=== PATIENT | male | born 1930 | race Caucasian/White ===

== ENCOUNTER 2016-04-24 12:36 | Emergency (ER) | payer MEDICARE, OTHER ==
[~2016-04-24] VITALS: Ht 182.9 cm; Wt 63.0 kg
[~2016-04-24 12:36] MED LIST: HOSP BED1; OMEGCAP PO; TAMS5CAP PO; WHEEMIS3; [UNRECOGNIZED DRUG - OTHER]
[2016-04-24 12:40] VITALS: BP 105/55; PULSE 59; RESP 16; TEMP 97; O2SAT 99
[2016-04-24] MEDS ORDERED: SODIUM CHLOR 0.9% 1000 ML INJ 1,000 ML IV ONE (12:48)
[2016-04-24] MEDS ORDERED: SODIUM CHLORIDE 0.9% FLUSH 5 ML FLUSH IVF PRN (13:00)
[2016-04-24 13:11] VITALS: RESP 16; O2SAT 99
[2016-04-24] MEDS ORDERED: FLEEENE3 PR (13:38)
[2016-04-24] MEDS ORDERED: PLAV75TA29 G-TUBE (13:38)
[2016-04-24] MEDS ORDERED: MILKSUS G-TUBE (13:38)
[2016-04-24] MEDS ORDERED: ZOFR4SOL PO (13:38)
[2016-04-24] MEDS ORDERED: ASPI325T G-TUBE (13:38)
[2016-04-24] MEDS ORDERED: ACEP325S PR (13:38)
[2016-04-24] MEDS ORDERED: MELA3TAB PEG (13:38)
[2016-04-24] MEDS ORDERED: FAMO40SU G-TUBE (13:38)
[2016-04-24] MEDS ORDERED: CULT10CA4 G-TUBE (13:38)
[2016-04-24] MEDS ORDERED: DIAZ5 G-TUBE (13:38)
[2016-04-24] MEDS ORDERED: TYLE325T G-TUBE ×2 (13:38)
[2016-04-24] MEDS ORDERED: POTA10LI10 G-TUBE (13:38)
[2016-04-24] MEDS ORDERED: DULC10SU3 PR (13:38)
[2016-04-24] MEDS ORDERED: HYOS0.128 G-TUBE (13:38)
[2016-04-24] MEDS ORDERED: METO25TA3 G-TUBE (13:38)
[2016-04-24] MEDS ORDERED: AMIO200T G-TUBE (13:38)
[2016-04-24] MEDS ORDERED: MAGN400T2 G-TUBE (13:38)
[2016-04-24] MEDS ORDERED: POLY99.0 EACH EYE (13:38)
[2016-04-24] MEDS ORDERED: IPRASOL NEB (13:38)
[2016-04-24] MEDS ORDERED: DIGO50SO G-TUBE (13:38)
[2016-04-24] MEDS ORDERED: SCOP1PAT2 T-DERMAL (13:38)
[2016-04-24 13:43] LABS: AUTOMATED NEUTROPHIL # 3.1 TH/MM3 (1.8-7.7); BASOPHIL # 0.1 TH/MM3 (0-0.2); BASOPHIL % 1.1 % (0.0-2.0); EOSINOPHIL # 0.6 TH/MM3 (0-0.4); EOSINOPHIL % 8.2 % (0.0-4.0); HEMATOCRIT 38.4 % (39.0-51.0); HEMO FLAGS DIFF FINAL; LYMPH % 32.3 % (9.0-44.0); LYMPHOCYTE # 2.2 TH/MM3 (1.0-4.8); MEAN CELL VOLUME 93.3 FL (80.0-100.0); MEAN CORPUSCULAR HEMOGLOBIN 31.3 PG (27.0-34.0); MEAN CORPUSCULAR HGB CONC 33.5 % (32.0-36.0); MONO % 13.6 % (0.0-8.0); NEUT % 44.8 % (16.0-70.0); PLATELET COUNT 214 TH/MM3 (150-450); RED BLOOD COUNT 4.12 MIL/MM3 (4.50-5.90); WHITE BLOOD COUNT 6.9 TH/MM3 (4.0-11.0)
--- NOTE | 2016-04-24 13:48 | PD ---
HPI Chief Complaint: Syncope/Near-Syncope Time Seen by Provider: 12:39 Travel History International Travel<30 days: No Contact w/Intl Traveler<30days: No Traveled to known affect area: No History of Present Illness HPI The patient is a 85-year-old male who presents emergency department from a rehabilitation facility for possible syncope. According to EMS the patient had just finished physical therapy, was standing upright suddenly, when the patient went "white", and passed out. However, staff at the correction/ rehabilitation facility was able to see what was occurring and the patient did not fall to the ground. The patient's , states the patient is at baseline, which includes severe dementia. The patient will occasionally respond his name , follow simple commands such as grabbing hands, but is a poor historian. The patient is unable to answer review of systems. PFSH Past Medical History Atrial Fibrillation: Yes Dementia: Yes Diminished Hearing: No Genitourinary: Yes (prostate bladder stones) Headaches: Yes Medical other: Yes (PULMONARY EDEMA) Musculoskeletal: Yes Neurologic: Yes (dementia) Reproductive: No Respiratory: No Immunizations Current: Yes Tetanus Vaccination: < 5 Years Past Surgical History Cholecystectomy: Yes Eye Surgery: Yes (catarcat) Other Surgery: Yes (bladder stones) Social History Alcohol Use: Yes Tobacco Use: No Substance Use: No Allergies-Medications (Allergen,Severity, Reaction): Coded Allergies: No Known Allergies (Verified , 04/24/16) Reported Meds & Prescriptions Reported Meds & Active Scripts Active Reported Dulcolax Supp (Bisacodyl) 10 Mg Supp 10 Mg IN DAILY PRN Milk of Magnesia Liq (Magnesium Hydroxide) 400 Mg/5 Ml Susp 30 Ml G-TUBE DIRECTED PRN Fleet Enema Rectal (Sodium Phosphates Rectal) 7-19 Gm/118 Ml Enem 1 Applic IN ON 4TH DAY PRN Amiodarone (Amiodarone HCl) 200 Mg Tab 200 Mg G-TUBE DAILY Artificial Tears Opth Drops (Polyvinyl Alcohol) 1.4% Soln 1 Drop EACH EYE BID Aspirin 325 Mg Tab 325 Mg G-TUBE DAILY Culturelle (Lactobacillus Rhamnosus (GG)) 10 B Cell Cap 1 Cap G-TUBE DAILY Plavix (Clopidogrel Bisulfate) 75 Mg Tab 75 Mg G-TUBE DAILY Famotidine Liq (Famotidine) 40 Mg/5 Ml Susp 20 Mg G-TUBE BID Magnesium Oxide 400 Mg Tab 400 Mg G-TUBE BID Metoprolol Tartrate 25 Mg Tab 25 Mg G-TUBE Q12HR Hold for SBP <100 Scopolamine Patch 72 HR (Scopolamine) 1 Mg Patch 1 Patch T-DERMAL Q3D Acephen Supp (Acetaminophen) 325 Mg Supp 325 Mg IN Q4H PRN Tylenol (Acetaminophen) 325 Mg Tab 650 Mg G-TUBE Q4H PRN Duoneb (Ipratropium-Albuterol Neb) 0.5-2.5 Mg/3 Ml Neb 3 Ml NEB Q6HR PRN Zofran Liq (Ondansetron HCl) 4 Mg/5 Ml Soln 4 Mg PO Q6H PRN Potassium Chloride Liq (Potassium Chloride) 40 Meq/15 Ml Soln 20 Meq G-TUBE DAILY Digoxin Liq (Digoxin) 0.05 Mg/Ml Soln 0.25 Mg G-TUBE DAILY Melatonin 3 Mg Tab 3 Mg PEG BID PRN Valium (Diazepam) 5 Mg Tab 5 Mg G-TUBE DAILY Tylenol (Acetaminophen) 325 Mg Tab 325 Mg G-TUBE BID Hyoscyamine (Hyoscyamine Sulfate) 0.125 Mg Tab 0.125 Mg G-TUBE Q8HR PRN Review of Systems ROS Limitations: Clinical Condition, Poor Historian Except as stated in HPI: all other systems reviewed are Neg Physical Exam Narrative GENERAL: Awake, 85-year-old male who will occasionally respond to his name and follow simple commands such as squeezing hands, but does not answer questions. SKIN: Warm and dry. HEAD: Atraumatic. Normocephalic. EYES: Pupils are 2 mm bilateral. ENT: No nasal bleeding or discharge. Slightly dry mucous membranes. NECK: Trachea midline. No JVD. CARDIOVASCULAR: Regular rate and rhythm. No murmur appreciated. RESPIRATORY: No accessory muscle use. Clear to auscultation. Breath sounds equal bilaterally. GASTROINTESTINAL: Abdomen soft, non-tender, nondistended. No rebound tenderness. MUSCULOSKELETAL: No obvious deformities. No clubbing. No cyanosis. No edema. NEUROLOGICAL: Awake and alert. No obvious cranial nerve deficits. Motor grossly within normal limits. Grunts when his name is called. Withdraws all 4 extremities to pain. We'll squeeze hands bilaterally. PSYCHIATRIC: Appears demented. Data Data Last Documented VS Vital Signs Date Time Temp Pulse Resp B/P Pulse Ox O2 Delivery O2 Flow Rate FiO2 2/3/17 13:11 16 99 Room Air 04/24/16 12:40 97.0 59 105/55 Orders Electrocardiogram (04/24/16 12:48) Complete Blood Count With Diff (04/24/16 12:48) Comprehensive Metabolic Panel (04/24/16 12:48) Magnesium (Mg) (04/24/16 12:48) Ckmb (Isoenzyme) Profile (04/24/16 12:48) Troponin I (04/24/16 12:48) Urinalysis - C+S If Indicated (04/24/16 12:48) Chest, Single Ap (04/24/16 12:48) Ct Brain W/O Iv Contrast(Rout) (04/24/16 12:48) Ecg Monitoring (04/24/16 12:48) Iv Access Insert/Monitor (04/24/16 12:48) Oximetry (04/24/16 12:48) Sodium Chloride 0.9% Flush (Ns Flush) (04/24/16 13:00) Sodium Chlor 0.9% 1000 Ml Inj (Ns 1000 M (04/24/16 12:48) Digoxin (04/24/16 12:48) Labs Laboratory Tests Test 04/24/16 13:15 White Blood Count 6.9 TH/MM3 Red Blood Count 4.12 MIL/MM3 Hemoglobin 12.9 GM/DL Hematocrit 38.4 % Mean Corpuscular Volume 93.3 FL Mean Corpuscular Hemoglobin 31.3 PG Mean Corpuscular Hemoglobin 33.5 % Concent Red Cell Distribution Width 15.0 % Platelet Count 214 TH/MM3 Mean Platelet Volume 8.6 FL Neutrophils (%) (Auto) 44.8 % Lymphocytes (%) (Auto) 32.3 % Monocytes (%) (Auto) 13.6 % Eosinophils (%) (Auto) 8.2 % Basophils (%) (Auto) 1.1 % Neutrophils # (Auto) 3.1 TH/MM3 Lymphocytes # (Auto) 2.2 TH/MM3 Monocytes # (Auto) 0.9 TH/MM3 Eosinophils # (Auto) 0.6 TH/MM3 Basophils # (Auto) 0.1 TH/MM3 CBC Comment DIFF FINAL Differential Comment Sodium Level 139 MEQ/L Potassium Level 4.9 MEQ/L Chloride Level 105 MEQ/L Carbon Dioxide Level 29.6 MEQ/L Anion Gap 4 MEQ/L Blood Urea Nitrogen 26 MG/DL Creatinine 0.94 MG/DL Estimat Glomerular Filtration 76 ML/MIN Rate Random Glucose 107 MG/DL Calcium Level 8.5 MG/DL Magnesium Level 2.0 MG/DL Total Bilirubin 0.4 MG/DL Aspartate Amino Transf 47 U/L (AST/SGOT) Alanine Aminotransferase 68 U/L (ALT/SGPT) Alkaline Phosphatase 104 U/L Total Creatine Kinase 47 U/L Troponin I LESS THAN 0.02 NG/ML Total Protein 6.3 GM/DL Albumin 2.7 GM/DL Digoxin Level 0.2 NG/ML MDM Medical Decision Making Medical Screen Exam Complete: Yes Emergency Medical Condition: Yes Medical Record Reviewed: Yes Interpretation(s) EKG reveals sinus rhythm with a rate of 64. Left bundle branch block. No stiff skin changes when compared to EKG performed on January 27, 2016. Last Impressions Head CT 04/24/16 1248 Signed Impressions: Service Date/Time: Sunday, April 24, 2016 14:09 - CONCLUSION: Negative for an acute process Ventricles remain prominent Del Goss MD FACR Laboratory Tests Test 04/24/16 13:15 White Blood Count 6.9 TH/MM3 Red Blood Count 4.12 MIL/MM3 Hemoglobin 12.9 GM/DL Hematocrit 38.4 % Mean Corpuscular Volume 93.3 FL Mean Corpuscular Hemoglobin 31.3 PG Mean Corpuscular Hemoglobin 33.5 % Concent Red Cell Distribution Width 15.0 % Platelet Count 214 TH/MM3 Mean Platelet Volume 8.6 FL Neutrophils (%) (Auto) 44.8 % Lymphocytes (%) (Auto) 32.3 % Monocytes (%) (Auto) 13.6 % Eosinophils (%) (Auto) 8.2 % Basophils (%) (Auto) 1.1 % Neutrophils # (Auto) 3.1 TH/MM3 Lymphocytes # (Auto) 2.2 TH/MM3 Monocytes # (Auto) 0.9 TH/MM3 Eosinophils # (Auto) 0.6 TH/MM3 Basophils # (Auto) 0.1 TH/MM3 CBC Comment DIFF FINAL Differential Comment Sodium Level 139 MEQ/L Potassium Level 4.9 MEQ/L Chloride Level 105 MEQ/L Carbon Dioxide Level 29.6 MEQ/L Anion Gap 4 MEQ/L Blood Urea Nitrogen 26 MG/DL Creatinine 0.94 MG/DL Estimat Glomerular Filtration 76 ML/MIN Rate Random Glucose 107 MG/DL Calcium Level 8.5 MG/DL Magnesium Level 2.0 MG/DL Total Bilirubin 0.4 MG/DL Aspartate Amino Transf 47 U/L (AST/SGOT) Alanine Aminotransferase 68 U/L (ALT/SGPT) Alkaline Phosphatase 104 U/L Total Creatine Kinase 47 U/L Troponin I LESS THAN 0.02 NG/ML Total Protein 6.3 GM/DL Albumin 2.7 GM/DL Digoxin Level 0.2 NG/ML Chest x-ray reveals compensated cardiomegaly, otherwise unremarkable. Differential Diagnosis Differential diagnosis includes orthostatic hypotension, arrhythmia, electrolyte abnormality, seizure, intracranial hemorrhage, vasovagal syncope, near syncope. Narrative Course IV was established, labs are drawn and sent, and the patient was placed on cardiac telemetry monitoring and continuous pulse oximetry monitoring. EKG was ordered and interpreted. Orthostatic vital signs were obtained. CT of the brain was obtained. EMR was reviewed, the patient had a hospitalization with extensive workup including brain MRI and carotids as well as echocardiogram at the end of 2015, January, when he was admitted for new onset atrial fibrillation with syncope. Therefore, do not believe patient needs repeat carotid ultrasound or echocardiogram. Workup is unremarkable, presyncope may be secondary to activity earlier today and vagal mediated versus dehydration. The patient will be discharged back to [facility] facility. Diagnosis Primary Impression: Pre-syncope Additional Impression: Dementia Patient Instructions: General Instructions Additional Instructions: Follow-up with your primary physician. Return if symptoms worsen or progress. Disposition: 01 DISCHARGE HOME (discharged back to [facility] facility) Condition: Stable Camron Lopez MD Apr 24, 2016 13:48
[2016-04-24 14:15] LABS: ALKALINE PHOSPHATASE 104 U/L (45-117); ALT (GPT) 68 U/L (12-78); ANION GAP 4 MEQ/L (5-15); BICARBONATE 29.6 MEQ/L (21.0-32.0); BLOOD UREA NITROGEN 26 MG/DL (7-18); CHLORIDE 105 MEQ/L (98-107); DIGOXIN 0.2 NG/ML (0.8-2.0); GLOMERULAR FILTRATION RATE 76 ML/MIN (>89); SODIUM (NA) 139 MEQ/L (136-145); TOTAL BILIRUBIN ADULT 0.4 MG/DL (0.2-1.0)
--- NOTE | 2016-04-24 14:15 | RADRPT ---
EXAM DATE/TIME: 04/24/2016 12:58 [facility] COMPARISON: CHEST SINGLE AP, February 11, 2016, 14:14. INDICATIONS : Short of breath MEDICAL HISTORY : CVA SURGICAL HISTORY : Unobtainable ENCOUNTER: Initial ACUITY: 1 day PAIN SCORE: Non-responsive. LOCATION: Bilateral chest FINDINGS: The heart is minimally enlarged. The pulmonary vascularity is normal. There is no evidence of conso lidation, pleural effusion or pneumothorax. Moderate calcification is present in the thoracic aorta. CONCLUSION: Moderate compensated cardiomegaly. Otherwise, negative. Del Goss MD FACR on April 24, 2016 at 13:10 Board Certified Radiologist. This report was verified electronically.
[2016-04-24 14:17] LABS: AST (GOT) 47 U/L (15-37); CREATINE KINASE 47 U/L (39-308); POTASSIUM 4.9 MEQ/L (3.5-5.1)
--- NOTE | 2016-04-24 14:23 | RADRPT ---
EXAM DATE/TIME: 04/24/2016 14:09 There is marked central and cortical atrophy with dilatation of ventricular and sulcal spaces. There is no parenchymal hemorrhage, acute infarction or mass lesion identified. There are no extra-axial fluid collections appreciated. The posterior fossa is unremarkable with midline fourth ventricle. T he portion of the orbits and paranasal sinuses visualized are unremarkable. CONCLUSION: Negative for an acute process Ventricles remain prominent Del Goss MD FACR on April 24, 2016 at 14:21 Board Certified Radiologist. This report was verified electronically.
[2016-04-24 17:39] VITALS: BP 130/84; TEMP 97.8
--- NOTE | 2016-04-26 13:19 | EKG ---
Date Performed: 04/24/2016 Time Performed: 12:43:49 PTAGE: 85 years EKG: Sinus rhythm WITH FIRST DEGREE AV BLOCK MARKED LEFT AXIS DEVIATION LEFT BUNDLE BRANCH BLOCK When compared to prev ious tracing, heart rate has slowed, Previously present atrial fibrillation is no longer present. The re is a new left bundle branch block. ABNORMAL ECG PREVIOUS TRACING : 02/03/2016 09.46 DOCTOR: Mary Lou Morgan Interpretating Date/Time 04/26/2016 13:19:34
== END 2016-04-24 17:41 | disposition home or self-care (01) ==
LOC: NEPE 12:36 → NEPA 17:41
DX: R55 Syncope and collapse (principal); F03.90 Unspecified dementia, unspecified severity, without behavioral disturbance, psychotic disturbance, mood disturbance, and anxiety; I44.0 Atrioventricular block, first degree; I44.7 Left bundle-branch block, unspecified; I48.91 Unspecified atrial fibrillation
CPT/HCPCS: 70450; 71010; 80053; 80162; 82550; 83735; 84484; 85025; 93005; 96360; 96361; 99285; J7030

== ENCOUNTER → 2016-05-18 | Outpatient (CLI) | payer MEDICARE, OTHER ==
[~2016-05-18] MED LIST changes: +ACEP325S PR; +AMIO200T G-TUBE; +ASPI-110 G-TUBE; +ASPI325T G-TUBE; +CULT10CA4 G-TUBE; +DIAZ5 G-TUBE; +DIGO50SO G-TUBE; +DULC10SU3 PR; +FAMO40SU G-TUBE; +FLEEENE3 PR; -HOSP BED1; +HYOS0.128 G-TUBE; +IPRASOL NEB; +MAGN400T2 G-TUBE; +MELA3TAB PEG; +METO25TA3 G-TUBE; +MILKSUS G-TUBE; -OMEGCAP PO; +PLAV75TA29 G-TUBE; +POLY99.0 EACH EYE; +POTA10LI10 G-TUBE; +PREV30TA3 G-TUBE; +SCOP1PAT2 T-DERMAL; -TAMS5CAP PO; +TYLE325T G-TUBE; -WHEEMIS3; +ZOFR4SOL PO; -[UNRECOGNIZED DRUG - OTHER]
--- NOTE | 2016-05-18 11:46 | RADRPT ---
EXAM DATE/TIME: 05/18/2016 10:28 [facility] COMPARISON: No previous studies available for comparison. INDICATIONS: Dysphagia. FLUORO TIME: 1.4 minutes IMAGE COUNT: 2 CONTRAST: Dose as prescribed by speech pathologist. MEDICAL HISTORY: Irregular heartbeat SURGICAL HISTORY: Tracheostomy, peg tube Dec/2015 ENCOUNTER: Initial ACUITY: 4 - 6 months PAIN SCORE: Non-responsive. LOCATION: Bilateral neck FINDINGS/ CONCLUSION: Patient has Parkinson's disease. Patient has a very delayer trigger of swallowing without saadia aspiration. Most significant finding is the inability to initiate swallowing. Please see the consultation from speech pathology. Del Goss MD FACR on May 18, 2016 at 11:30 Board Certified Radiologist. This report was verified electronically.
== END ==
LOC: HRAD 09:52
PROVIDERS: ATTEND Family Medicine
DX: R13.10 Dysphagia, unspecified (principal)
CPT/HCPCS: 74230; 92611; G8996; G8997; G8998

== ENCOUNTER 2016-09-17 01:33 | Observation (INO) | payer MEDICARE, OTHER ==
[~2016-09-17] VITALS: Ht 182.9 cm; Wt 63.0 kg
[2016-09-17] VITALS (9 sets, daily range): BP systolic 96–140; BP diastolic 54–64; PULSE 64–85; RESP 14–20; TEMP 97.4–98.4; O2SAT 90–98
[~2016-09-17 01:33] MED LIST changes: -ASPI-110 G-TUBE; -PREV30TA3 G-TUBE
[2016-09-17] MEDS ORDERED: SODIUM CHLORIDE 0.9% FLUSH 10 ML FLUSH IVF PRN (01:45)
--- NOTE | 2016-09-17 01:45 | PD ---
HPI Chief Complaint: DARK TARRY STOOLS Time Seen by Provider: 01:37 Travel History International Travel<30 days: No Contact w/Intl Traveler<30days: No History of Present Illness HPI TODAY PER FAMILY HAS HAD AT LEAST 3 BM WHICH WERE BETWEEN BRIGHT RED TO COFFEE GROUND, PT HAS ADVANCE DEMENTIA AND DYSPHAGIA (HAS G TUBE IN PLACE) AND IS ONLY A/OX1 AT BEST PER FAMILY. PT HAS NO CURRENT COMPLAINT PFSH Past Medical History Atrial Fibrillation: Yes Dementia: Yes Diminished Hearing: No Genitourinary: Yes (prostate bladder stones) Headaches: Yes Musculoskeletal: Yes Neurologic: Yes (dementia) Reproductive: No Respiratory: No Immunizations Current: Yes Past Surgical History Cholecystectomy: Yes Eye Surgery: Yes (catarcat) Other Surgery: Yes (bladder stones) Social History Alcohol Use: Yes Tobacco Use: No Substance Use: No Allergies-Medications (Allergen,Severity, Reaction): Coded Allergies: No Known Allergies (Verified , 09/17/16) Reported Meds & Prescriptions Reported Meds & Active Scripts Active Reported Amiodarone (Amiodarone HCl) 200 Mg Tab 200 Mg G-TUBE DAILY Artificial Tears Opth Drops (Polyvinyl Alcohol) 1.4% Soln 1 Drop EACH EYE BID Plavix (Clopidogrel Bisulfate) 75 Mg Tab 75 Mg G-TUBE DAILY Magnesium Oxide 400 Mg Tab 400 Mg G-TUBE BID Potassium Chloride Liq (Potassium Chloride) 40 Meq/15 Ml Soln 20 Meq G-TUBE DAILY Digoxin Liq (Digoxin) 0.05 Mg/Ml Soln 0.25 Mg G-TUBE DAILY Valium (Diazepam) 5 Mg Tab 5 Mg G-TUBE DAILY Review of Systems ROS Limitations: Poor Historian (DUE TO ADVANCE DEMENTIA, IS A POOR HISTORIAN) , Other: Physical Exam Exam Limitations: Poor Historian Narrative GENERAL: SKIN: Warm and dry. HEAD: Atraumatic. Normocephalic. EYES: Pupils equal and round. No scleral icterus. No injection or drainage. ENT: No nasal bleeding or discharge. Mucous membranes pink and moist. NECK: Trachea midline. No JVD. CARDIOVASCULAR: Regular rate and rhythm. RESPIRATORY: No accessory muscle use. Clear to auscultation. Breath sounds equal bilaterally. GASTROINTESTINAL: Abdomen soft, non-tender, nondistended. RECTAL POSITIVE FOR COFFEE GROUND COLOR STOOL AND GUAIAC POS MUSCULOSKELETAL: Extremities without clubbing, cyanosis, or edema. No obvious deformities. NEUROLOGICAL: Awake and alert. No obvious cranial nerve deficits. Motor grossly within normal limits. Five out of 5 muscle strength in the arms and legs. Normal speech. PSYCHIATRIC: Appropriate mood and affect; insight and judgment normal. Data Data Last Documented VS Orders Complete Blood Count With Diff (09/17/16 01:38) Prothrombin Time / Inr (Pt) (09/17/16 01:38) Act Partial Throm Time (Ptt) (09/17/16 01:38) Type And Screen (09/17/16 01:38) Ecg Monitoring (09/17/16 01:38) Iv Access Insert/Monitor (09/17/16 01:38) Oximetry (09/17/16 01:38) Sodium Chloride 0.9% Flush (Ns Flush) (09/17/16 01:45) Comprehensive Metabolic Panel (09/17/16 01:38) Lipase (09/17/16 01:38) Digoxin (09/17/16 01:50) Admit Order (Ed Use Only) (09/17/16 02:41) Labs Laboratory Tests Test 09/17/16 01:50 White Blood Count 8.4 TH/MM3 Red Blood Count 3.82 MIL/MM3 Hemoglobin 12.1 GM/DL Hematocrit 35.5 % Mean Corpuscular Volume 93.1 FL Mean Corpuscular Hemoglobin 31.6 PG Mean Corpuscular Hemoglobin 34.0 % Concent Red Cell Distribution Width 13.0 % Platelet Count 277 TH/MM3 Mean Platelet Volume 8.3 FL Neutrophils (%) (Auto) 64.2 % Lymphocytes (%) (Auto) 20.0 % Monocytes (%) (Auto) 9.5 % Eosinophils (%) (Auto) 4.3 % Basophils (%) (Auto) 2.0 % Neutrophils # (Auto) 5.4 TH/MM3 Lymphocytes # (Auto) 1.7 TH/MM3 Monocytes # (Auto) 0.8 TH/MM3 Eosinophils # (Auto) 0.4 TH/MM3 Basophils # (Auto) 0.2 TH/MM3 CBC Comment AUTO DIFF Differential Comment AUTO DIFF CONFIRMED Platelet Estimate NORMAL Platelet Morphology Comment NORMAL Sodium Level 135 MEQ/L Potassium Level 5.6 MEQ/L Chloride Level 103 MEQ/L Carbon Dioxide Level 27.3 MEQ/L Anion Gap 5 MEQ/L Blood Urea Nitrogen 24 MG/DL Creatinine 0.82 MG/DL Estimat Glomerular Filtration 89 ML/MIN Rate Random Glucose 85 MG/DL Calcium Level 7.9 MG/DL Total Bilirubin 0.5 MG/DL Aspartate Amino Transf 32 U/L (AST/SGOT) Alanine Aminotransferase 19 U/L (ALT/SGPT) Alkaline Phosphatase 83 U/L Total Protein 5.6 GM/DL Albumin 2.5 GM/DL Lipase 206 U/L Digoxin Level 0.8 NG/ML Blood Type B POSITIVE Antibody Screen NEGATIVE MDM Medical Decision Making Medical Screen Exam Complete: Yes Emergency Medical Condition: Yes Medical Record Reviewed: Yes Differential Diagnosis ANTICOAGULATION INDUCED BLEEDING V GI BLEEDING V FOOD DISLCOLORATION OF STOOL V ANEMIA Narrative Course BASED ON BEDSIDE EXAM DARK TARRY STOOLS POSITVE GUIAIAC WITHOUT ANAL FISSURE OR HEMORHOID. HEMODYNAMICALLY STABLE, H/H STABLE. WILL CALL DR LOVETT (PER SERVICE , [employer] ALL WEEK). CALL OUT TO [facility] Point of Care Internal Pos. & Neg. Controls: Passed Fecal Specimen Occult Blood: Positive Diagnosis Primary Impression: GI BLEED (HEMODYNAMICALLY STABLE) Admitting Information Admitting Physician Requests: Observation Scripts Lansoprazole ODT (Prevacid Solutab ODT)30 Mg Tab30 Mg G-TUBE DAILY #30 TAB Prov:Ru Rand 09/18/[address] (Aspirin 81)81 Mg Tabdr81 Mg G-TUBE DAILY #30 TAB Ref 0 Prov:Ru Rand 09/18/16 Enrique Hassan MD Sep 17, 2016 01:45
[2016-09-17 02:07] LABS: AUTOMATED NEUTROPHIL # 5.4 TH/MM3 (1.8-7.7); BASOPHIL # 0.2 TH/MM3 (0-0.2); EOSINOPHIL # 0.4 TH/MM3 (0-0.4); EOSINOPHIL % 4.3 % (0.0-4.0); HEMATOCRIT 35.5 % (39.0-51.0); LYMPHOCYTE # 1.7 TH/MM3 (1.0-4.8); MEAN CELL VOLUME 93.1 FL (80.0-100.0); MEAN CORPUSCULAR HEMOGLOBIN 31.6 PG (27.0-34.0); MONO % 9.5 % (0.0-8.0); NEUT % 64.2 % (16.0-70.0); PLATELET COUNT 277 TH/MM3 (150-450); RED BLOOD COUNT 3.82 MIL/MM3 (4.50-5.90); WHITE BLOOD COUNT 8.4 TH/MM3 (4.0-11.0)
[2016-09-17 02:24] LABS: HEMO FLAGS AUTO DIFF
[2016-09-17 02:41] LABS: ALKALINE PHOSPHATASE 83 U/L (45-117); DIGOXIN 0.8 NG/ML (0.8-2.0); TOTAL BILIRUBIN ADULT 0.5 MG/DL (0.2-1.0)
[2016-09-17 02:48] LABS: ALT (GPT) 19 U/L (12-78); ANION GAP 5 MEQ/L (5-15); AST (GOT) 32 U/L (15-37); BICARBONATE 27.3 MEQ/L (21.0-32.0); BLOOD UREA NITROGEN 24 MG/DL (7-18); CHLORIDE 103 MEQ/L (98-107); GLOMERULAR FILTRATION RATE 89 ML/MIN (>89); SODIUM (NA) 135 MEQ/L (136-145)
[2016-09-17 02:49] LABS: POTASSIUM 5.6 MEQ/L (3.5-5.1)
[2016-09-17] MEDS ORDERED: NALOXONE HCL 0.4 MG/ML AMP IV PRN (03:15)
[2016-09-17] MEDS ORDERED: SODIUM CHLORIDE 0.9% FLUSH 10 ML FLUSH IV FLUSH PRN (03:15)
[2016-09-17 03:29] LABS: PLATELET ESTIMATE SMEAR NORMAL (NORMAL); PLATELET MORPHOLOGY NORMAL (NORMAL); SCAN/DIFF AUTO DIFF CONFIRMED
[2016-09-17 04:00] LABS: PROTHROMBIN TIME - PATIENT 11.2 SEC (9.8-11.6)
[2016-09-17] MEDS ORDERED: PANTOPRAZOLE INJ 80 MG in SODIUM CHLORIDE 0.9% INJ 35 ML IV ONE (04:15)
[2016-09-17] MEDS ORDERED: PANTOPRAZOLE INJ 80 MG in SODIUM CHLORIDE 0.9% INJ 100 ML IV SCH (04:15)
[2016-09-17 05:29] LABS: HEMATOCRIT 34.9 % (39.0-51.0); REVIEW FLAG FINAL
--- NOTE | 2016-09-17 05:49 | HHI.HP ---
HPI Service [facility] Primary Care Physician Hernan Guardado MD Admission Diagnosis GI BLEED (HEMODYNAMICALLY STABLE) Diagnoses: Travel History International Travel<30 Days: No Contact w/Intl Traveler <30 Da: No Traveled to Known Affected Are: No History of Present Illness hx from and [employer] worker/neighbour at the bedside stated that she brought him to hospital because she noticed he had 3 x episodes of black stool with some bright red blood denies other complaints from patient has advanced dementia but usually would complain if he feels something per no falls no syncope no shortness of breath no nausea or vomiting baseline is that he is mostly wheel chair bound able to sit up able to walk shuffling sideways Review of Systems ROS Limitations: Altered Mental Status (limited ROS from patient as pt has advanced dementia) Past Family Social History Past Medical History afib grade I diastolic heart failure alzeimers dementia hx of ventilator dependence - 01/2016 LBBB BPH Allergic rhinitis Past Surgical History ortho procedures cataract sx bladder stone removal Reported Medications has a list Allergies: Coded Allergies: No Known Allergies (Verified , 09/17/16) Family History pt's mom had chf dad had massive [place] Social History never smoked cigarettes, not a drinker, no drugs advanced dementia, has been at home since apr 2016 with Physical Exam Vital Signs Vital Signs Date Time Temp Pulse Resp B/P Pulse Ox O2 Delivery O2 Flow Rate FiO2 09/17/16 03:00 70 14 111/56 96 Room Air 09/17/16 01:56 18 96 Room Air 09/17/16 01:38 98.4 69 20 118/58 95 Physical Exam GENERAL: This is a well-nourished, well-developed patient, in some distress from confusion, being out of his environment SKIN: dry scaly skin HEAD: Atraumatic. Normocephalic. No temporal or scalp tenderness. EYES: No scleral icterus. No injection or drainage. ENT: Nose without bleeding, purulent drainage or septal hematoma. Airway patent. NECK: Trachea midline. No JVD CARDIOVASCULAR: Regular rate and rhythm without murmurs, gallops, or rubs. RESPIRATORY: Clear to auscultation. Breath sounds equal bilaterally. No wheezes , rales, or rhonchi. GASTROINTESTINAL: Abdomen soft, non-tender, nondistended.. No guarding. peg tube in place MUSCULOSKELETAL: Extremities without clubbing, cyanosis, or edema. . No calf tenderness. NEUROLOGICAL: Awake, confused, moving around, trying to pull peg tube out, verbally communicative though does not make sense and does not really answer appropriately Laboratory Laboratory Tests Test 09/17/16 09/17/16 09/17/16 01:50 03:20 05:16 White Blood Count 8.4 Red Blood Count 3.82 Hemoglobin 12.1 12.0 Hematocrit 35.5 34.9 Mean Corpuscular Volume 93.1 Mean Corpuscular Hemoglobin 31.6 Mean Corpuscular Hemoglobin 34.0 Concent Red Cell Distribution Width 13.0 Platelet Count 277 Mean Platelet Volume 8.3 Neutrophils (%) (Auto) 64.2 Lymphocytes (%) (Auto) 20.0 Monocytes (%) (Auto) 9.5 Eosinophils (%) (Auto) 4.3 Basophils (%) (Auto) 2.0 Neutrophils # (Auto) 5.4 Lymphocytes # (Auto) 1.7 Monocytes # (Auto) 0.8 Eosinophils # (Auto) 0.4 Basophils # (Auto) 0.2 CBC Comment AUTO DIFF Differential Comment AUTO DIFF CONFIRMED Platelet Estimate NORMAL Platelet Morphology Comment NORMAL Sodium Level 135 Potassium Level 5.6 Chloride Level 103 Carbon Dioxide Level 27.3 Anion Gap 5 Blood Urea Nitrogen 24 Creatinine 0.82 Estimat Glomerular Filtration 89 Rate Random Glucose 85 Calcium Level 7.9 Total Bilirubin 0.5 Aspartate Amino Transf 32 (AST/SGOT) Alanine Aminotransferase 19 (ALT/SGPT) Alkaline Phosphatase 83 Total Protein 5.6 Albumin 2.5 Lipase 206 Digoxin Level 0.8 Blood Type B POSITIVE Antibody Screen NEGATIVE Prothrombin Time 11.2 Prothromb Time International 1.0 Ratio Activated Partial 22.0 Thromboplast Time Result Diagram: 09/17/16 0516 09/17/16 0150 Assessment and Plan Assessment and Plan Impression: UGI bleed Advanced dementia with agitation afib grade I diastolic heart failure hx of ventilator dependence - 01/2016 LBBB BPH Allergic rhinitis Plan: serial hgb/hct type and screen tele monitoring GI consult for GI bleed and possible PEG tube malfunction Code Status full code discussed with in detail Discussed Condition With patient, ER MD, patient's and [employer] worker Apolinar Stubbs MD Sep 17, 2016 05:49
[2016-09-17] MEDS ORDERED: LORazepam 2 MG/ML VIAL IV PUSH ONE (06:00)
--- NOTE | 2016-09-17 08:57 | PD.CONS ---
HPI History of Present Illness This is a 86 year old with Alzheimer's dementia that was brought to the emergency room for evaluation of rectal bleeding. The patient is confused and unable to provide any history and therefore the history has been obtained from both the EMR, outpatient records, and from the . The tells me that in January of last year, he had a PEG tube placed because he was "too sedated to eat." He has been at home with her and she reports that she's been trying to get him off the tube feeding. She feeds him a regular diet and he seems to tolerate this well without any coughing, nausea, or vomiting. Occasionally he will be too sleepy to eat and when that happened she will give Iso sure 1.54 cans per day through the PEG tube. She reports that he was in his normal state of health up until yesterday evening when he passed a small bowel movement with a large amount of bright red blood per rectum he did not appear to be in any pain and she reports that normally he will tell her if she is having any discomfort. She denies any nausea, vomiting, hematemesis, constipation, diarrhea, or obvious discomfort. EGD (02/04/16)----> normal EGD, 20 Greek PEG tube placed. He has not had a colonoscopy in many years. He is on Plavix at home. Spoke to the Thalia Vallejo regarding further evaluation with EGD/ colonoscopy. She states that she does not want to purse any endoscopic procedure unless absolutely necessary because of his overall condition and the fact that she does not want for him to have anesthesia. She is hoping to get him back home as soon as possible. Did explain to her that if he is bleeding, he could have further bleeding once the Plavix is resumed and we will not know for sure what is causing his bleeding. She verbalizes understanding but would like to hold off on any invasive procedures. PFSH Past Medical History Atrial fibrillation Congestive heart failure Alzheimer's dementia History of respiratory failure requiring mechanical ventilation BPH Allergic rhinitis Past Surgical History Multiple orthopedic procedures EGD with PEG tube placement Cataract sx Surgery to have bladder stone removed Coded Allergies: No Known Allergies (Verified , 09/17/16) Medications Allergies Coded Allergies Type Severity Reaction Last Updated Verified No Known Allergies 09/17/16 Yes Active Scripts Medications Dose Route/Sig Days Date Category Dose Instructions Amiodarone (Amiodarone HCl) 200 Mg Tab 200 Mg G-TUBE DAILY 04/24/16 Reported Artificial Tears Opth Drops (Polyvinyl Alcohol) 1.4% Soln 1 Drop EACH EYE BID 04/24/16 Reported Aspirin 325 Mg Tab 325 Mg G-TUBE DAILY 04/24/16 Reported Plavix (Clopidogrel Bisulfate) 75 Mg Tab 75 Mg G-TUBE DAILY 04/24/16 Reported Magnesium Oxide 400 Mg Tab 400 Mg G-TUBE BID 04/24/16 Reported Metoprolol Tartrate 25 Mg Tab 25 Mg G-TUBE Q12HR 04/24/16 Reported Hold for SBP <100 Potassium Chloride Liq (Potassium Chloride) 40 Meq/15 Ml Soln 20 Meq G-TUBE DAILY 04/24/16 Reported Digoxin Liq (Digoxin) 0.05 Mg/Ml Soln 0.25 Mg G-TUBE DAILY 04/24/16 Reported Valium (Diazepam) 5 Mg Tab 5 Mg G-TUBE DAILY 04/24/16 Reported Family History Mother had CHF. Father from an [place] Social History Never smoked, does not drink alcohol or use illicit drugs Review of Systems ROS Unable to obtain from patient. Patient's reports that he had a large amount of right red blood per rectum with bowel movement but denies any constipation or abdominal pain or nausea or vomiting GI Exam Vitals I&O Vital Signs Date Time Temp Pulse Resp B/P Pulse Ox O2 Delivery O2 Flow Rate FiO2 09/17/16 07:53 97.6 71 19 140/64 93 09/17/16 06:33 97.4 83 124/58 09/17/16 03:00 70 14 111/56 96 Room Air 09/17/16 01:56 18 96 Room Air 09/17/16 01:38 98.4 69 20 118/58 95 Laboratory Test 09/17/16 09/17/16 09/17/16 01:50 03:20 05:16 White Blood Count 8.4 TH/MM3 Red Blood Count 3.82 MIL/MM3 Hemoglobin 12.1 GM/DL 12.0 GM/DL Hematocrit 35.5 % 34.9 % Mean Corpuscular Volume 93.1 FL Mean Corpuscular Hemoglobin 31.6 PG Mean Corpuscular Hemoglobin 34.0 % Concent Red Cell Distribution Width 13.0 % Platelet Count 277 TH/MM3 Mean Platelet Volume 8.3 FL Neutrophils (%) (Auto) 64.2 % Lymphocytes (%) (Auto) 20.0 % Monocytes (%) (Auto) 9.5 % Eosinophils (%) (Auto) 4.3 % Basophils (%) (Auto) 2.0 % Neutrophils # (Auto) 5.4 TH/MM3 Lymphocytes # (Auto) 1.7 TH/MM3 Monocytes # (Auto) 0.8 TH/MM3 Eosinophils # (Auto) 0.4 TH/MM3 Basophils # (Auto) 0.2 TH/MM3 CBC Comment AUTO DIFF Differential Comment AUTO DIFF CONFIRMED Platelet Estimate NORMAL Platelet Morphology Comment NORMAL Sodium Level 135 MEQ/L Potassium Level 5.6 MEQ/L Chloride Level 103 MEQ/L Carbon Dioxide Level 27.3 MEQ/L Anion Gap 5 MEQ/L Blood Urea Nitrogen 24 MG/DL Creatinine 0.82 MG/DL Estimat Glomerular Filtration 89 ML/MIN Rate Random Glucose 85 MG/DL Calcium Level 7.9 MG/DL Total Bilirubin 0.5 MG/DL Aspartate Amino Transf 32 U/L (AST/SGOT) Alanine Aminotransferase 19 U/L (ALT/SGPT) Alkaline Phosphatase 83 U/L Total Protein 5.6 GM/DL Albumin 2.5 GM/DL Lipase 206 U/L Digoxin Level 0.8 NG/ML Blood Type B POSITIVE Antibody Screen NEGATIVE Prothrombin Time 11.2 SEC Prothromb Time International 1.0 RATIO Ratio Activated Partial 22.0 SEC Thromboplast Time Physical Examination HEENT: Normocephalic; atraumatic CHEST: CTA CARDIAC: Irregular, rate controlled. ABDOMEN: Soft, nondistended, nontender; no hepatosplenomegaly; bowel sounds are present in all four quadrants. PEG tube site without redness, swelling, or drainage. I did flush and aspirate from the PEG tube and I had clear gastric contents and return. The tube is patent EXTREMITIES: No clubbing, cyanosis, or edema. SKIN: Normal; no rash; no jaundice. SANITOR: Lethargic, confused Assessment and Plan Plan ASSESSMENT: - BRBPR. On Plavix at home. No hx of GIB. States he passed a solid bowel movement with moderate to large amount of bright red blood yestetrday at 6pm, 7pm, and 12am. He was brought to the ER for further evaluation and has not had any further episodes. She does not believe that he has been constipated. The patient has dementia, but his reports that he can say when he has pain and has not had any complaints. PEG tube was flushed (patent) and aspirated clear gastric returns without bleeding. reports no hx of GIB. She states it has been many years since he had a colonoscopy. D/ W (Thalia Vallejo) further evaluation with EGD/colonoscopy. She states that she does not want to purse any endoscopic procedure unless absolutely necessary because of his overall condition and the fact that she does not want for him to have anesthesia. She is hoping to get him back home as soon as possible, as his dementia worsens when he is out of his environment and it takes a long time to get back to his baseline. Did explain to her that if he is bleeding, he could have further bleeding once the Plavix is resumed and we will not know for sure what is causing his bleeding. She verbalizes understanding but would like to hold off on any invasive procedures. HH has been stable 12.1/35.5---> 12.0/34.9. Will start diet after swallow evaluation and monitor. PPI, Colace. - Poor appetite/malnutrition. reports that he was "too sedated to eat" and had EGD (02/04/16)----> normal EGD, 20 Greek PEG tube placed. She feeds him a regular diet and denies any coughing or choking with this. Occasionally he will be too sleepy to eat and when that happened she will give Iso sure 1.54 cans per day through the PEG tube. Swallow evaluation, then okay to start diet per their recommendations. - Anemia, mild. HH has been stable 12.1/35.5---> 12.0/34.9. No active bleeding since arrival to floor. - K+ 5.6, per attending. - Atrial fibrillation, CHF, Dementia, BPH, Allergic rhinitis per attending PLAN: - Swallow evaluation, heart healthy diet per their recommendations - D/C Protonix gtt - Prevacid 30mg per G tube daily - Colace 100mg per G tube BID - Miralax 17gram per G tube as needed - Monitor HH - D/W further evaluation with endoscopically, she does not wish to pursue at this time. She is hoping to get him back home as soon as possible - Pt seen and examined by Dr. Tomlinson and myself and this note is written on his behalf Emi Morris Sep 17, 2016 08:57
[2016-09-17] MEDS: SODIUM CHLORIDE 0.9% FLUSH 10 ML FLUSH IV FLUSH SCH ×2 (09:00→21:56)
[2016-09-17] MEDS ORDERED: POLYETHYLENE GLYCOL 17 GM PKG G-TUBE PRN (10:45)
[2016-09-17 11:29] LABS: BICARBONATE 27.5 MEQ/L (21.0-32.0); POTASSIUM 3.9 MEQ/L (3.5-5.1)
--- NOTE | 2016-09-17 12:12 | HHI.PR ---
Subjective Remarks Follow up for GI bleed. The patient is currently sleeping, awakens to voice however does not provide reliable history with dementia. The patient's is at bedside. She reports no further bowel movement or bleeding since arrival. She continues to decline any invasive procedures including EGD or colonoscopy. He denies any abdominal pain, nausea/vomiting. reporting his PEG tube hasn' t been working well and has a hole in the tube; she is requesting replacement of the tube while he is here in the hospital. No other medical complaints at this time. Objective Vitals Vital Signs Date Time Temp Pulse Resp B/P Pulse Ox O2 Delivery O2 Flow Rate FiO2 09/17/16 12:04 97.5 85 20 107/61 90 09/17/16 07:53 97.6 71 19 140/64 93 09/17/16 06:33 97.4 83 124/58 09/17/16 03:00 70 14 111/56 96 Room Air 09/17/16 01:56 18 96 Room Air 09/17/16 01:38 98.4 69 20 118/58 95 Result Diagram: 09/17/16 0516 09/17/16 1032 Objective Remarks GENERAL: Well-nourished, well-developed elderly male patient in [facility]. SKIN: Warm and dry. No rash. HEENT: Normocephalic. Atraumatic. Pupils equal and round. Mucous membranes pink and moist. NECK: Supple. Trachea midline. CARDIOVASCULAR: Regular rate and rhythm. S1, S2 noted. No murmur appreciated. RESPIRATORY: No accessory muscle use. Clear to auscultation. Breath sounds equal bilaterally. GASTROINTESTINAL: Abdomen soft, non-tender, nondistended. Normoactive bowel sounds x4. PEG tube in place. MUSCULOSKELETAL: No obvious deformities. Extremities without clubbing, cyanosis , or edema. NEUROLOGICAL: Awake and alert. No obvious cranial nerve deficits. Motor grossly within normal limits. PSYCHIATRIC: Appropriate mood and affect; insight and judgment poor. Medications and IVs Current Medications Medications (Trade) Dose Ordered Sig/Deniz Route Start Time Stop Time Status Last Admin (NS Flush) 2 ml UNSCH PRN IV FLUSH 09/17/16 03:15 (NS Flush) 2 ml BID IV FLUSH 09/17/16 09:00 (Narcan Inj) 0.4 mg UNSCH PRN IV 09/17/16 03:15 (Prevacid Odt) 30 mg DAILY G-TUBE 09/18/16 09:00 (Colace Liq) 100 mg Q12HR G-TUBE 09/17/16 21:00 (Miralax) 17 gm DAILY PRN G-TUBE 09/17/16 10:45 A/P Assessment and Plan 78-year-old male with history of advanced dementia, A. fib on aspirin 325mg, grade 1 diastolic CHF, BPH, presents with black and bloody stools GI bleeding: suspect upper GI with black stools. Rectal exam in ER showed coffee ground stools, Guaiac positive. Hgb 12.1 to 12.0 overnight. Consult GI, patient's declined EGD/colonoscopy at this time. Will continue to monitor serial H&H and monitor for any further bleeding. Discussed with RN to monitor stools. Continue Prevacid and colace. Possible discharge later today if no further bleeding and if Hgb stable. 1530hrs: Hgb dropped to 10.6. Will keep patient overnight and continue to trend H&H. Protein-Calorie Malnutrition: patient appears cachectic on exam, with BMI 18, total protein 5.6, and albumin 2.5. Patient reportedly eats regular diet with Isosource tube feed supplementation at home. Patient's reports he is usually too sedated to eat. Will consult director zone for further recommendations. Swallow eval done by ST, recommends mechanical soft diet, chopped meat with extra gravy, no liquid restrictions. PEG Tube Malfunction: patient has hole in PEG tube, not functioning properly. Consult IR for PEG tube replacement. Advanced dementia with agitation: patient at baseline per . Supportive treatment. Patient's requesting discharge as early as possible to avoid disruption of daily schedule. Atrial Fibrillation: chronic, not on full anticoagulation suspect with hx of falls and GI bleeding. Continue patient's amiodarone and Digoxin. Hold patient' s aspirin 325mg with GI bleeding as above. All other medical conditions stable, continue home medications as appropriate. DVT Prophylaxis: teds/SCDs, avoid chemical prophylaxis with GI bleeding as above. Discharge Planning Discharge pending stabilization of hemoglobin, if no further GI bleeding, and PEG tube replacement by IR. Mercedes Javier PA-C Sep 17, 2016 12:12 pm
[2016-09-17 14:37] LABS: HEMATOCRIT 30.9 % (39.0-51.0); REVIEW FLAG FINAL
[2016-09-17] MEDS ORDERED: LORazepam 2 MG/ML VIAL ONE (15:18)
[2016-09-17] MEDS ORDERED: IOHEXOL 350 MG/ML 50 ML BTL (for RAD DIAG) G-TUBE ONE (15:35)
--- NOTE | 2016-09-17 16:52 | RADRPT ---
EXAM DATE/TIME: 09/17/2016 15:07 [place] COMPARISON: No previous studies available for comparison. INDICATIONS : Patient with a history of Alzheimers need gastrostomy tube exchanged. MEDICAL HISTORY : A-Fib CHF Dementia Respiratory failure BPH Allergic rhinitis SURGICAL HISTORY : Orthopedic procedures EGD with PEG placement Cataract surgery Pinky sonlissa removal ENCOUNTER: Initial ACUITY: 1 day PAIN SCORE: 0/10 FLUORO TIME: 0.31 minutes IMAGE SERIES: 2 CONTRAST: 10 cc Omnipaque (iohexol) 350 MEDICATION(S): 1.) 0.5 mg lorazepam (Ativan) IV DEVICE(S): 1.) 20 Armenian gastrostomy tube PROCEDURE : 1. Fluoroscopically guided gastrostomy tube exchange. 2. Conscious sedation with continuous EKG and oximetry monitoring. The risks, benefits and alternatives to the procedure were explained and verbal and written consent w as obtained. The site was prepped in sterile fashion. Full sterile technique was used, including ca p, mask, sterile gloves and gown and a large sterile sheet. Hand hygiene and 2% chlorhexidine and/or betadine/alcohol prep was utilized per protocol for cutaneous antisepsis. The skin and subcutaneous tissues were infiltrated with local anesthetic solution. The existing tube was accessed using sterile technique. The tube was removed over a 0.035 wire. A ne w tube was advanced over the wire and positioned into the stomach without difficulty. The balloon wa s inflated with appropriate volume of saline. Injection of positive contrast demonstrates good posit ion of the gastrostomy tube. Conscious sedation was performed with the prescribed dosages and duration as above in the presence of an independent trained radiology nurse to assist in the monitoring of the patient. EKG and oximetry remained stable throughout the procedure. The patient tolerated the procedure well and there were n o complications. The patient was sent to post anesthesia recovery in stable condition. CONCLUSION: Uncomplicated gastrostomy tube exchange as above. Hung Moreno MD on September 17, 2016 at 16:49 Board Certified Radiologist. This report was verified electronically.
[2016-09-17 21:40] LABS: REVIEW FLAG FINAL
[2016-09-17] MEDS: MAGNESIUM OXIDE 400 MG TAB G-TUBE SCH (21:50)
[2016-09-17] MEDS: ARTIFICIAL TEARS OPTH SOLN 15 ML BTL EACH EYE SCH (21:50)
[2016-09-17] MEDS: DOCUSATE SODIUM 100 MG/10 ML UDC G-TUBE SCH (21:56)
[2016-09-18 00:03] VITALS: BP 112/56; PULSE 77; RESP 18; TEMP 98.5; O2SAT 97
[2016-09-18 03:27] LABS: AUTOMATED NEUTROPHIL # 3.9 TH/MM3 (1.8-7.7); BASOPHIL % 0.6 % (0.0-2.0); EOSINOPHIL # 0.3 TH/MM3 (0-0.4); EOSINOPHIL % 4.5 % (0.0-4.0); HEMO FLAGS DIFF FINAL; LYMPH % 21.4 % (9.0-44.0); LYMPHOCYTE # 1.3 TH/MM3 (1.0-4.8); MEAN CELL VOLUME 92.4 FL (80.0-100.0); MEAN CORPUSCULAR HEMOGLOBIN 32.1 PG (27.0-34.0); MEAN CORPUSCULAR HGB CONC 34.7 % (32.0-36.0); MONO % 11.6 % (0.0-8.0); NEUT % 61.9 % (16.0-70.0); PLATELET COUNT 271 TH/MM3 (150-450); RED BLOOD COUNT 3.57 MIL/MM3 (4.50-5.90); RED CELL DISTRIBUTION WIDTH 12.7 % (11.6-17.2); WHITE BLOOD COUNT 6.2 TH/MM3 (4.0-11.0)
[2016-09-18 03:41] LABS: BICARBONATE 29.1 MEQ/L (21.0-32.0); POTASSIUM 4.2 MEQ/L (3.5-5.1)
[2016-09-18 05:16] VITALS: BP 108/64; PULSE 78; RESP 16; TEMP 98.4; O2SAT 94
[2016-09-18 07:39] VITALS: BP 120/60; PULSE 93; RESP 16; TEMP 98.6; O2SAT 96
[2016-09-18 08:25] VITALS: PULSE 84
[2016-09-18] MEDS ORDERED: ASPI-110 G-TUBE (08:58)
[2016-09-18] MEDS ORDERED: PREV30TA3 G-TUBE (08:58)
[2016-09-18] MEDS: DOCUSATE SODIUM 100 MG/10 ML UDC G-TUBE SCH (09:00)
[2016-09-18] MEDS ORDERED: LANSOPRAZOLE SOLUTAB 30 MG TAB G-TUBE SCH (09:00)
[2016-09-18] MEDS ORDERED: AMIODARONE 200 MG TAB G-TUBE SCH (09:00)
[2016-09-18] MEDS ORDERED: DIGOXIN SOLUTION 0.125 MG/2.5 ML CUP G-TUBE SCH (09:00)
--- NOTE | 2016-09-18 09:01 | HHI.FF ---
Face to Face Verification Diagnosis: (1) GIB (gastrointestinal bleeding) (2) Dementia (3) Dysphagia (4) Atrial fibrillation Physical Therapy Order: Evaluate and Treat, Improve ambulation, Strength and gait training Speech Therapy Order: To Improve: Speech and communication skills, Cognitive skills, Swallowing Home Health Nursing Order: Medical education Signs/symptoms of disease process Medication education-adverse effect Nursing assessment with vital signs I have seen patient Ozzy VallejoJr on 09/18/16. My clinical findings support the need for the requested home health care services because: Ltd mobility - disease progression Deconditioned w/ increased weakness Limited ability to care for self Need for psychosocial assistance Impaired cognition/judgement I certify that my clinical findings support that this patient is homebound because: Impaired cognitive ability/safety Unsafe to leave home unassisted Need for psychosocial assistance Poor cardiac reserve Ru Rand Sep 18, 2016 09:01
--- NOTE | 2016-09-18 09:08 | HHI.PR ---
Subjective Remarks Follow-up for GI bleeding. Patient seen with at bedside. No acute overnight events reported. The patient is demented, but voices no acute complaints. No GI bleeding noted during admission with improving hemoglobin. Patient's continues to decline invasive GI procedures. She elected to take the patient home today if he is stable. G-tube was exchanged yesterday with IR. Reviewed anticoagulation therapy at length with patient's , at this time will decrease aspirin dose and continue Plavix, and plan to follow-up with PCP to discuss further options. The patient is no longer taking metoprolol. The patient has been getting home health care PT, ST, and OT at home. Objective Vitals Vital Signs Date Time Temp Pulse Resp B/P Pulse Ox O2 Delivery O2 Flow Rate FiO2 09/18/16 07:39 98.6 93 16 120/60 96 09/18/16 05:16 98.4 78 16 108/64 94 09/18/16 00:03 98.5 77 18 112/56 97 09/17/16 20:11 98.0 77 18 116/57 94 09/17/16 20:00 64 09/17/16 18:25 97.5 75 17 96/54 98 09/17/16 12:04 97.5 85 20 107/61 90 I/O 09/17/16 09/17/16 09/17/16 09/18/16 09/18/16 09/18/16 07:00 15:00 23:00 07:00 15:00 23:00 Intake Total 80 ml Balance 80 ml Intake IV Total 80 ml # Voids 1 0 Result Diagram: 09/18/16 0254 09/18/16 0254 Imaging Last Impressions Catheter Change 09/17/16 0000 Signed Impressions: Service Date/Time: August 15:07 - CONCLUSION: Uncomplicated gastrostomy tube exchange as above. Hung Moreno MD Objective Remarks GENERAL: Well-developed well-nourished. In no acute distress. SKIN: Warm and dry. No lesions noted. HEENT: Normocephalic. Pupils equal and round. Mucous membranes pink and moist. CARDIOVASCULAR: Regular rate and rhythm. No murmur appreciated. RESPIRATORY: No accessory muscle use. Clear to auscultation. Breath sounds equal bilaterally. GASTROINTESTINAL: Abdomen soft, non-tender, nondistended. Bowel sounds x4. G- tube in place. MUSCULOSKELETAL: No obvious deformities. No clubbing or cyanosis. No edema. NEUROLOGICAL: Awake and alert. No focal neurological deficits. Moves upper and lower extremities spontaneously. Normal speech. PSYCHIATRIC: Pleasantly confused mood and affect; insight and judgment limited A/P Assessment and Plan 78-year-old male with history of advanced dementia, A. fib on aspirin 325mg, grade 1 diastolic CHF, BPH, presents with black and bloody stools GI bleeding: suspect upper GI with black stools. Rectal exam in ER showed coffee ground stools, Guaiac positive. Hgb 12.1->10.6->11.5, stable. Consulted GI, patient's declined EGD/colonoscopy at this time. Continue Prevacid and colace. Protein-Calorie Malnutrition: patient appears cachectic on exam, with BMI 18, total protein 5.6, and albumin 2.5. Patient reportedly eats regular diet with Isosource tube feed supplementation at home. Patient's reports he is usually too sedated to eat. Consulted [facility] for further recommendations, appreciate input. Swallow eval done by ST, recommends mechanical soft diet, chopped meat with extra gravy, no liquid restrictions. PEG Tube Malfunction: patient has hole in PEG tube, not functioning properly. Consulted IR who performed PEG tube replacement 09/18/16. Advanced dementia with agitation: patient at mental status baseline per . Supportive treatment. Atrial Fibrillation: chronic. Chadsvasc2 due to age, denies HTN history. Continue patient's amiodarone and Digoxin. Held patient's aspirin 325mg with GI bleeding as above, resume at 81 mg. Patient's would like to continue on Plavix for now and follow up with PCP to consider discontinuing. All other medical conditions stable, continue home medications as appropriate. DVT Prophylaxis: teds/SCDs Discharge Planning Discussed with case management concerning discharge planning. Discharge patient to home with [facility] Condition on discharge: Improved Heart healthy and tube feeding Diet as tolerated Regular activity Rx written: Aspirin, Prevacid Follow-up with primary care physician Ru Rand Sep 18, 2016 09:07
[2016-09-18] MEDS: ARTIFICIAL TEARS OPTH SOLN 15 ML BTL EACH EYE SCH (10:27)
[2016-09-18] MEDS: MAGNESIUM OXIDE 400 MG TAB G-TUBE SCH (10:27)
[2016-09-18] MEDS: SODIUM CHLORIDE 0.9% FLUSH 10 ML FLUSH IV FLUSH SCH (10:27)
== END 2016-09-18 13:52 | disposition home or self-care (01) ==
LOC: NEPE 01:33 → NEDA 02:43 → NEPGCP 05:16
PROVIDERS: ADMIT Hospitalist; ATTEND Hospitalist
DX: K92.1 Melena (principal); K94.23 Gastrostomy malfunction; R13.10 Dysphagia, unspecified; D64.9 Anemia, unspecified; R53.83 Other fatigue; E46 Unspecified protein-calorie malnutrition; R64 Cachexia; G30.9 Alzheimer's disease, unspecified; F02.81 Dementia in other diseases classified elsewhere, unspecified severity, with behavioral disturbance; I48.2 Chronic atrial fibrillation; I50.32 Chronic diastolic (congestive) heart failure; I44.7 Left bundle-branch block, unspecified; N40.0 Benign prostatic hyperplasia without lower urinary tract symptoms; J30.9 Allergic rhinitis, unspecified; Z68.1 Body mass index [BMI] 19.9 or less, adult; Z79.02 Long term (current) use of antithrombotics/antiplatelets
CPT/HCPCS: 49450; 80048; 80053; 80162; 83690; 85014; 85018; 85025; 85610; 85730; 86850; 86900; 86901; 92526; 92610; 97162; 99285; C1769; C9113; G0378; G8987; G8988; G8996; G8997; G8998; J2060; Q9967